=== PATIENT | male | born 1970 | race Caucasian/White ===

== ENCOUNTER 2025-05-15 06:19 | Day surgery (SDC) | payer BC, SELFPAY ==
[2025-04-29 08:58] LABS: Hematocrit 42.0 % (39.0-52.0); Hemoglobin 14.1 g/dL (13.0-18.0); Mean Corp Hgb Conc. 33.6 g/dL (33.0-37.0); Mean Corpuscular Volume 92.3 fL (80.0-94.0); Platelet Count 300 10^3/uL (130-400); Red Cell Dist. Width 12.1 % (11.5-14.5)
[2025-04-29 10:42] LABS: Blood Urea Nitrogen 15 mg/dl (9-20); Calcium 9.4 mg/dl (8.4-10.2); Carbon Dioxide 25 mmol/L (22-30); Chloride 107 mmol/L (98-107); Glucose 87 mg/dl (70-99); Potassium 4.8 mmol/L (3.5-5.1); Sodium 140 mmol/L (135-145); eGFR > 60.00
[2025-04-29 14:13] VITALS: BMI 27.3
[2025-05-15] VITALS (9 sets, daily range): BP systolic 129–158; BP diastolic 75–97; BMI 27.3
--- NOTE | 2025-05-15 07:10 | HP.FOC2 ---
Focused History & Physical
Chief Complaint
HPI:
Chief Complaint: Right inguinal hernia
HPI / Indication for Planned Procedure: Patient is a 55-year-old male recently seen in outpatient surgical evaluation secondary to right inguinal swelling and an awareness of his hernia that has slightly enlarged in size over the past couple years.
Examination confirmed the presence of a readily reducible right inguinal hernia. After discussions regarding treatment options patient wished to pursue operative correction. He presents today for robotic assisted laparoscopic right inguinal
herniorrhaphy with mesh
Relevant Past Medical History: Negative
Relevant Social History: Negative
Relevant Family History: Negative
Relevant Past Surgical History: Positive for (Right arthroscopic knee surgery)
Review of Systems
Review of Pertinent Systems: All Systems Negative
Medication
See Medication form for detailed medications: Yes
Medication List (including Herbals & OTC):
ibuprofen 200 mg tablet (Advil) 200 - 400 mg PO Q6H PRN PAIN 05/08/25
Medications Reviewed: Yes
Allergies and Reactions
Patient has Allergies: No
Noted Allergies and Reactions:
Allergy/AdvReac Type Severity Reaction Status Date / Time
No Known Allergies Allergy Verified 05/08/25 11:17
Pertinent Physical Exam
All Other Systems: Negative
Head/Neck: Normal
Lungs: Normal
Heart: Normal
Abdomen: Other (Right inguinal hernia, reducible)
Extremities: Normal
Neurological: Normal
Diagnosis / Assessment
55-year-old male presenting for scheduled operative correction symptomatic right inguinal hernia
Plan / Procedure
Robotic assisted laparoscopic repair of right inguinal hernia with mesh
Anesthesia/Sedation to be done by Anesthesia Provider: Yes
--- NOTE | 2025-05-15 07:41 | W.SUR.PREOP ---
Pre-Operative Surgical Note
-
I have examined this patient prior to the performance of the scheduled procedure.
The patient's condition is unchanged from the time of the current History and
Physical and the patient is able to undergo the scheduled procedure.
[2025-05-15] MEDS: TYLENOL 1000 MG PO (09:06)
[2025-05-15] MEDS: NORMOSOL-R/PLASMALYTE-A 1000 IV (09:14)
--- NOTE | 2025-05-15 11:31 | W.IMMPOSTOP ---
Surgical Immed Post Op Note
-
Primary Surgeon: Tho Reza MD
Assisting Surgeon: Ana Larsen PA-C
Pre-op Diagnosis: Right inguinal hernia
Post-op Diagnosis: Right inguinal hernia, direct
Procedure Performed: Robotic assisted laparoscopic repair right inguinal hernia with mesh; 3D max large mid weight
Anesthesia Type: GETA +0.25% Marcaine with epi
Specimen / Cultures: None
Estimated Blood Loss: 6 mL
Complications: None immediate
Operative Findings: Right direct inguinal hernia. Indirect and femoral spaces normal. No lipomatous component of the spermatic cord. 3D max large mid weight mesh repair. Left inguinal region normal. No additional incidental findings.
The assistance of Ana Larsen PA-C was required due to the complexity of the procedure. During the procedure Ana Larsen PA-C assisted with port placement, robotic instrumentation and suture material exchanges, and closure of the surgical incision
sites. I was present for the entirety of the operative procedure.
--- NOTE | 2025-05-15 11:32 | OR.RPT ---
Operative Report
Operative Report
Date of operative procedure: 05/15/2025
Primary Surgeon: Tho Reza MD
Assisting Surgeon: Ana Larsen PA-C
Pre-op Diagnosis: Right inguinal hernia
Post-op Diagnosis: Right inguinal hernia, direct
Procedure Performed: Robotic assisted laparoscopic GARY repair right inguinal hernia with mesh; 3D max large mid weight
Anesthesia Type: GETA +0.25% Marcaine
Specimen / Cultures: None/none
Estimated Blood Loss: 6 mL
Complications: None immediate
Indications for operative procedure: Patient is a 55-year-old male recently seen in outpatient surgical evaluation secondary to right inguinal swelling and an awareness of his hernia that has slightly enlarged in size over the past couple years.
Examination confirmed the presence of a readily reducible right inguinal hernia. After discussions regarding treatment options patient wished to pursue operative correction. He presents today for robotic assisted laparoscopic right inguinal
herniorrhaphy with mesh.
Brief summary of operative Findings: Right direct inguinal hernia. Indirect and femoral spaces normal. No lipomatous component of the spermatic cord. 3D max large mid weight mesh repair. Left inguinal region normal. No additional incidental
findings.
Operation detail: The patient was identified in the preoperative holding area. I confirmed the surgical site and side with the patient preoperatively which was then marked and initialed by myself. The patient was interviewed by the anesthesia and
nursing staff then brought back to the operating room. The patient was placed on the operating table in supine position. The bilateral upper extremities were carefully padded and tucked at the side utilizing the arm guard positioning system.
Pneumatic compression boots were on the bilateral lower extremities. Following induction of general endotracheal anesthesia the patient was administered Ancef 2 g IV for prophylactic antibiotic coverage. The patient's anterior abdominal wall was
now widely and sterilely prepped with ChloraPrep and then draped in the usual manner. The surgical timeout was completed and the procedure was confirmed.
I initially proceeded with Veress needle insufflation in the left subcostal midclavicular line location. Once insufflated to 12 mmHg pressure then a left midclavicular line 8 mm trocar was then placed. The robotic scope was inserted, there was no
evidence of iatrogenic injury from access. The Veress needle was withdrawn. An epigastric 8 mm trocar was placed just to the right off of the midline. A right midclavicular line 8 mm trocar was placed. The patient was then transition into
Trendelenburg to expose the inguinal/pelvic space and the robot was docked.
At the surgeon console inspection of the pelvis confirmed the presence of a right direct inguinal hernia. The left inguinal region was normal. There were no additional incidental intra-abdominal findings.
I initially began with creation of a peritoneal flap at the level of the right ASIS to the right medial umbilical ligament incising the peritoneum with scissors. The preperitoneal plane was now established along the length of the flap and developed
inferiorly down to the inguinal space. The medial dissection proceeded until the notch of the pubic symphysis was exposed at the midline followed by Ludwig's ligament on the right side. The herniated preperitoneal fat and peritoneum were
completely cleared off of the pseudosac of the direct inguinal hernia space. Ludwig's ligament was now cleared through the femoral space which was normal. The underside of Luwdig's ligament was exposed as well. The peritoneal flap was now
mobilized laterally down to the internal ring. The peritoneum was now mobilized off the internal ring and spermatic cord structures. The peritoneal dissection continued back proximally past the turn in the right vas deferens and then overlying the
right iliac space to meet up with the medial dissection. The posterior dissection continued until there was wide separation between the vas and the spermatic cord vessels. The dissection continued posterior laterally for full exposure of the
myopectineal orifice. The indirect inguinal space was further evaluated and there was no lipomatous component to the spermatic cord or inguinal canal visualized.
With the myopectineal orifice now completely exposed hemostasis was confirmed. A 3D max large mid weight mesh was utilized for repair. The mesh was positioned parallel to the ileopubic tract. It was secured at 2 separate locations inferior
medially on Ludwig's ligament with 2 simple interrupted 2-0 Vicryl sutures. The patient was now begun to be taken out of Trendelenburg to confirm that the posterior aspect of the mesh was lying flat and that there was no shelling or undermining of
the mesh by the peritoneal edge. Insufflation pressure was also reduced down to 8 mmHg pressure. The peritoneal flap was now closed with a 2-0 Monocryl STRATAFIX spiral suture with a running Jaya type stitch.
A flexible suction catheter was placed through an 8 mm trocar and introduced into the peritoneal flap to evacuate the air out of the preperitoneal space. This again confirmed good positioning of the inguinal hernia mesh. There was no shelling or
folding of the mesh and no undermining and mesh by the peritoneal edge. The peritoneal covering of the mesh was completely intact.
At this point the robot was undocked. All sponge instrument and needle counts were confirmed to be correct x 2. The CO2 insufflation was now carefully evacuated out of the abdominal cavity. The trocar sites were removed as well as the flexible
suction catheter. Skin was closed with 4-0 Monocryl. Sterile surgical glue dressings were applied. The patient tolerated the procedure well and was transferred to the recovery unit for routine postoperative monitoring.
The assistance of Ana Larsen PA-C was required due to complexity of surgery. During the procedure Ana Larsen PA-C assisted with port placement, robotic instrumentation and suture material exchanges as well as closure of the surgical sites. I
was present for the entirety of the operative procedure.
[2025-05-15] MEDS: ZOFRAN 4 MG IV (13:10)
== END 2025-05-15 13:30 | disposition home or self-care (01) ==
LOC: SDS 06:19
PROVIDERS: ATTENDING PHYSICIAN Surgery; FAMILY PHYSICIAN Family Medicine
DX: K40.90 Unilateral inguinal hernia, without obstruction or gangrene, not specified as recurrent (principal)
CPT/HCPCS: 49650; 36415; 80048; 85027; 93005; C1781